=== PATIENT | male | born 1995 | race Caucasian/White ===

== ENCOUNTER 2017-01-02 13:47 | Emergency (ER) | payer SELFPAY ==
[2017-01-02] MEDS ORDERED: guaiFENesin 100 mg/5 ml Syrup UD PO STA (14:44)
--- NOTE | 2017-01-02 14:45 | C.PDOC ---
History Of Present Illness 21 y/o male presents to ED with complaints of non productive cough and nausea since yesterday. Patient states he went to school this morning and symptoms worse, states he took dayquil and nyquil yesterday with mild relief but today did not take anything. Patient denies fever, vomiting, diarrhea, abdominal pain or any other complaints at this time. Time Seen by Provider: 01/02/17 14:25 Chief Complaint (Nursing): Flu-like Symptoms History Per: Patient History/Exam Limitations: no limitations Onset/Duration Of Symptoms: Days Current Symptoms Are (Timing): Still Present Past Medical History Reviewed: Historical Data, Nursing Documentation, Vital Signs Vital Signs: Last Vital Signs Temp 97.3 F L 01/02/17 15:02 Pulse 85 01/02/17 15:02 Resp 18 01/02/17 15:02 BP 126/79 01/02/17 15:02 Pulse Ox 100 01/02/17 15:02 - Medical History PMH: No Chronic Diseases Surgical History: No Surg Hx Family History: States: No Known Family Hx - Social History Hx Alcohol Use: No Hx Substance Use: No - Immunization History Hx Tetanus Toxoid Vaccination: No Hx Influenza Vaccination: No Hx Pneumococcal Vaccination: No Review Of Systems Constitutional: Negative for: Fever, Chills Cardiovascular: Negative for: Chest Pain Respiratory: Positive for: Cough. Negative for: Shortness of Breath Gastrointestinal: Positive for: Nausea. Negative for: Vomiting, Abdominal Pain Musculoskeletal: Negative for: Back Pain Skin: Negative for: Rash Physical Exam - Physical Exam Appears: Non-toxic, No Acute Distress Skin: Normal Color, Warm, Dry, No Rash Head: Atraumatic, Normacephalic Eye(s): bilateral: Normal Inspection, EOMI Ear(s): Bilateral: Normal Nose: Normal Throat: Normal, No Erythema, No Exudate Neck: Normal ROM, Supple Chest: Symmetrical Cardiovascular: Rhythm Regular Respiratory: Normal Breath Sounds, No Rales, No Rhonchi, No Wheezing Gastrointestinal/Abdominal: Soft, No Tenderness, No Guarding, No Rebound Neurological/Psych: Oriented x3 ED Course And Treatment O2 Sat by Pulse Oximetry: 99 (RA) Pulse Ox Interpretation: Normal Medical Decision Making Medical Decision Making: mild viral syndrome, benign exam. educated Disposition Doctor Will See Patient In The: Office Counseled Patient/Family Regarding: Studies Performed, Diagnosis - Disposition Referrals: Gem King [Medical Doctor] - Disposition: HOME/ ROUTINE Disposition Time: 14:44 Condition: GOOD Additional Instructions: continue dayquil//Nyquil regularly for viral syndrome symptoms Rest and take plenty of fluids Follow-up with your PMD as needed. Instructions: Acute Nausea and Vomiting (ED), Viral Syndrome (ED) Forms: [employer] (Hungarian) - Clinical Impression Clinical Impression: Viral syndrome, Vomiting - Scribe Statement The provider has reviewed the documentation as recorded by the Keikoibguy Rooney All medical record entries made by the Keikoibguy were at my direction and personally dictated by me. I have reviewed the chart and agree that the record accurately reflects my personal performance of the history, physical exam, medical decision making, and the department course for this patient. I have also personally directed, reviewed, and agree with the discharge instructions and disposition.
[2017-01-02] MEDS ORDERED: guaiFENesin 100 mg/5 ml Syrup UD ONE (14:52)
[2017-01-02 15:04] VITALS: BP 126/79; PULSE 85; RESP 18; TEMP 97.3
[2017-01-02 15:41] VITALS: O2SAT 99
== END 2017-01-02 14:50 | disposition home or self-care (01) ==
LOC: C.ER 13:47
DX: B34.9 Viral infection, unspecified (principal); R11.10 Vomiting, unspecified

== ENCOUNTER 2018-03-05 14:10 | Emergency (ER) | payer MEDICAID ==
[2018-03-05 14:28] VITALS: BP 119/78; PULSE 101; RESP 18; TEMP 97.4; O2SAT 100
--- NOTE | 2018-03-05 14:48 | C.PDOC ---
History Of Present Illness 22 y/o male presents to the ED complaining of a cough, bodyaches, sore throat, and subjective fever since yesterday. Contrary to triage patient does not report knee pain, instead is complaining of myalgias. Did not receive flu shot this year. No other complaints offered. Time Seen by Provider: 03/05/18 14:30 Chief Complaint (Nursing): Cough, Cold, Congestion History Per: Patient History/Exam Limitations: no limitations Onset/Duration Of Symptoms: Days Current Symptoms Are (Timing): Still Present Past Medical History Reviewed: Historical Data, Nursing Documentation, Vital Signs Vital Signs: Last Vital Signs Temp 97.4 F L 03/05/18 14:26 Pulse 101 H 03/05/18 14:26 Resp 18 03/05/18 14:26 BP 119/78 03/05/18 14:26 Pulse Ox 100 03/05/18 14:26 Surgical History: Hernia Repair Family History: States: Unknown Family Hx - Social History Hx Alcohol Use: No Hx Substance Use: No - Immunization History Hx Tetanus Toxoid Vaccination: No Hx Influenza Vaccination: No Hx Pneumococcal Vaccination: No Review Of Systems Except As Marked, All Systems Reviewed And Found Negative. Constitutional: Positive for: Fever, Chills, Other (Bodyaches) ENT: Positive for: Throat Pain Cardiovascular: Negative for: Chest Pain Respiratory: Positive for: Cough. Negative for: Shortness of Breath Gastrointestinal: Negative for: Nausea, Vomiting, Diarrhea Neurological: Negative for: Headache, Dizziness Physical Exam - Physical Exam Appears: Non-toxic, No Acute Distress Skin: Normal Color, Warm, Dry Head: Atraumatic, Normacephalic Eye(s): bilateral: Normal Inspection, PERRL, EOMI Nose: Normal Oral Mucosa: Moist Throat: Erythema (pharyngeal erythema), No Exudate Neck: Normal ROM Cardiovascular: Rhythm Regular, No Murmur Respiratory: Normal Breath Sounds, No Rales, No Rhonchi, No Wheezing Extremity: Bilateral: Atraumatic, Normal Color And Temperature, Normal ROM Pulses: Left Radial: Normal, Right Radial: Normal Neurological/Psych: Oriented x3 ED Course And Treatment O2 Sat by Pulse Oximetry: 100 (RA) Pulse Ox Interpretation: Normal Medical Decision Making Medical Decision Making: Impression: Flu-like illness Plan: Patient will be discharged home with RX for Tamiflu. Advised to follow up with PMD. high suspecision for influenza will treat Disposition Counseled Patient/Family Regarding: Diagnosis, Need For Followup, Rx Given - Disposition Disposition: HOME/ ROUTINE Disposition Time: 14:45 Condition: STABLE Additional Instructions: return to er with worsening symptoms or concerns. Prescriptions: Oseltamivir Phosphate [Tamiflu] 75 mg PO BID #10 capsule Instructions: Viral Syndrome (DC), Influenza (ED) Forms: [employer] (Kiswahili) - Clinical Impression Clinical Impression: Viral disease - Scribe Statement The provider has reviewed the documentation as recorded by the Diane Fang Provider Attestation: All medical record entries made by the Diane were at my direction and personally dictated by me. I have reviewed the chart and agree that the record accurately reflects my personal performance of the history, physical exam, medical decision making, and the department course for this patient. I have also personally directed, reviewed, and agree with the discharge instructions and disposition.
== END 2018-03-05 15:17 | disposition home or self-care (01) ==
LOC: C.ER 14:10
DX: B34.9 Viral infection, unspecified (principal)

== ENCOUNTER 2018-03-29 18:11 | Emergency (ER) | payer MEDICAID ==
[2018-03-29 18:18] VITALS: BMI 26.6
[2018-03-29] MEDS ORDERED: Sodium Chloride 0.9% 1,000 ML IV ONE (19:35)
[2018-03-29] MEDS ORDERED: Sodium Chloride 0.9% 1,000 ML ONE (20:00)
[2018-03-29 20:16] LABS: BASO # 0.1 K/uL (0.0-0.2); BASO % 0.6 % (0.0-2.0); EOS # 0.6 K/uL (0.0-0.7); LYMPH # 3.1 K/uL (1.0-4.3); LYMPH % 21.4 % (20.0-40.0); MEAN CELL VOLUME 84.7 fL (80.0-94.0); MEAN CORPUSCULAR HEMOGLOBIN 27.5 pg (27.0-31.0); MEAN CORPUSCULAR HGB CONC 32.5 g/dL (33.0-37.0); MEAN PLATELET VOLUME 7.1 fL (7.2-11.7); MONO # 1.2 K/uL (0.0-0.8); MONO % 8.3 % (0.0-10.0); NEUT # 9.6 K/uL (1.8-7.0); NEUT % 65.7 % (50.0-75.0); RBC 5.45 Mil/uL (4.40-5.90); RED CELL DISTRIBUTION WIDTH 14.2 % (11.5-14.5); WHITE BLOOD COUNT 14.5 K/uL (4.8-10.8)
[2018-03-29 20:32] LABS: ALB/GLOB RATIO 1.5 (1.0-2.1); ALBUMIN 4.6 g/dL (3.5-5.0); ALT/SGPT 29 U/L (21-72); AST/SGOT 29 U/L (17-59); BLOOD UREA NITROGEN 14 mg/dL (9-20); CALCIUM 9.2 mg/dl (8.6-10.4); GFR NON-AFRICAN AMERICAN > 60
[2018-03-29 21:03] VITALS: BP 120/77; PULSE 92; RESP 20; O2SAT 95
[2018-03-29 21:28] VITALS: TEMP 98.2
--- NOTE | 2018-03-30 01:08 | C.PDOC ---
History Of Present Illness 22 year old male presents to the ED c/o sharp like chest pain associated with SOB since today at 02:00. Patient denies fever, chills, cough, nausea, vomit, headache, dizziness, recent travel, sick contacts. Chief Complaint (Nursing): Chest Pain History Per: Patient History/Exam Limitations: no limitations Onset/Duration Of Symptoms: Hrs (02:00) Current Symptoms Are (Timing): Still Present Quality: Sharp Associated Symptoms: Other (SOB) Recent travel outside of the [place]: No Additional History Per: Patient Past Medical History Reviewed: Historical Data, Nursing Documentation, Vital Signs Vital Signs: Last Vital Signs Temp 98.2 F 03/29/18 21:28 Pulse 92 H 03/29/18 21:00 Resp 20 03/29/18 21:00 BP 120/77 03/29/18 21:00 Pulse Ox 95 03/29/18 21:00 - Medical History PMH: Hypercholesterolemia Surgical History: Hernia Repair Family History: States: Unknown Family Hx - Social History Hx Alcohol Use: No Hx Substance Use: No - Immunization History Hx Tetanus Toxoid Vaccination: No Hx Influenza Vaccination: No Hx Pneumococcal Vaccination: No Review Of Systems Constitutional: Negative for: Fever, Chills Cardiovascular: Positive for: Chest Pain. Negative for: Palpitations Respiratory: Positive for: Shortness of Breath. Negative for: Cough Gastrointestinal: Negative for: Nausea, Vomiting, Abdominal Pain Skin: Negative for: Rash Neurological: Negative for: Weakness, Numbness, Headache, Dizziness Physical Exam - Physical Exam Appears: Non-toxic, No Acute Distress Skin: Normal Color, Warm, Dry Head: Atraumatic, Normacephalic Eye(s): bilateral: Normal Inspection Neck: Normal ROM, Supple Chest: Symmetrical Cardiovascular: Rhythm Regular Respiratory: Normal Breath Sounds, No Rales, No Rhonchi, No Wheezing Gastrointestinal/Abdominal: Soft, No Tenderness, No Guarding, No Rebound Extremity: Normal ROM, No Tenderness, No Swelling Neurological/Psych: Oriented x3, Normal Speech, Normal Cognition Gait: Steady ED Course And Treatment - Laboratory Results Result Diagrams: 03/29/18 20:10 03/29/18 20:10 Lab Results: D-Dimer, Quantitative < 200 ng/mlDDU (0-243) 03/29/18 20:10 Troponin I < 0.0120 ng/mL (0.00-0.120) 03/29/18 20:10 Total Bilirubin 0.8 mg/dL (0.2-1.3) 03/29/18 20:10 AST 29 U/L (17-59) 03/29/18 20:10 ALT 29 U/L (21-72) 03/29/18 20:10 Alkaline Phosphatase 69 U/L (38-126) 03/29/18 20:10 Total Protein 7.8 g/dL (6.3-8.3) 03/29/18 20:10 Albumin 4.6 g/dL (3.5-5.0) 03/29/18 20:10 Globulin 3.2 gm/dL (2.2-3.9) 03/29/18 20:10 Albumin/Globulin Ratio 1.5 (1.0-2.1) 03/29/18 20:10 ECG: Interpreted By Me, Viewed By Me ECG Rhythm: Sinus Tachycardia Interpretation Of ECG: Normal axis , normal intervals Rate From EC (BPM) O2 Sat by Pulse Oximetry: 95 (ON RA) Pulse Ox Interpretation: Normal Medical Decision Making Medical Decision Making: Plan: * Labs * CXR * EKG * IV fluids reevaluation: Patient's HR was noted to be in the low 90s, patient reports feeling better will follow up with PMD for further evaluation. Disposition - Disposition Referrals: Yamileth Carmona, [Non-Staff] - Disposition: HOME/ ROUTINE Disposition Time: 21:00 Condition: GOOD Additional Instructions: EDENILSON GARCIA, thank you for letting us take care of you today. The emergency medical care you received today was directed at your acute symptoms. If you were prescribed any medication, please fill it and take as directed. It may take several days for your symptoms to resolve. Return to the Emergency Department if your symptoms worsen, do not improve, or if you have any other problems. Please contact your doctor or call one of the physicians/clinics you have been referred to that are listed on the Patient Visit Information form that is included in your discharge packet. Bring any paperwork you were given at discharge with you along with any medications you are taking to your follow up visit. Our treatment cannot replace ongoing medical care by a primary care provider outside of the emergency department. Thank you for allowing the [facility] team to be part of your care today. Follow up with your primary care doctor this week for re-evaluation and further management. Instructions: Dehydration, Adult (DC) Forms: [facility] (Occitan) - Clinical Impression Clinical Impression: Atypical chest pain - Scribe Statement The provider has reviewed the documentation as recorded by the Scribe Filippo Cabello All medical record entries made by the Scribe were at my direction and personally dictated by me. I have reviewed the chart and agree that the record accurately reflects my personal performance of the history, physical exam, medical decision making, and the department course for this patient. I have also personally directed, reviewed, and agree with the discharge instructions and disposition.
--- NOTE | 2018-03-30 09:20 | RAD ---
Chest x-ray single frontal view HISTORY: Chest pain. COMPARISON: None available. Findings: No focal infiltrate or effusion. Heart size within normal limits. Impression: No focal infiltrate or effusion.
--- NOTE | 2018-03-31 09:52 | CARD ---
APPROVED REPORT Date of service: 03/29/2018 EKG Measurement Heart [id number] <Conclusion> Sinus tachycardia Left posterior fascicular block Abnormal ECG
== END 2018-03-29 21:29 | disposition home or self-care (01) ==
LOC: C.ER 18:11
DX: R07.89 Other chest pain (principal)
CPT/HCPCS: 71045; 80053; 84484; 85025; 85378; 93005; 96360; 99284; J7030

== ENCOUNTER 2018-06-18 04:45 | Emergency (ER) | payer MEDICAID ==
[2018-06-18 05:01] VITALS: BMI 60.2
--- NOTE | 2018-06-18 05:03 | C.PDOC ---
History Of Present Illness 22-year-old male presents to the ED for evaluation of pain to his left lower tooth which began yesterday. Patient states he took some medicine for his pain yesterday, with slight improvement. He woke up early this morning with pain, and presents to the ED for further evaluation. Patient denies fever, chills, or injury to the site. Time Seen by Provider: 06/18/18 04:51 Chief Complaint (Nursing): Dental Pain History Per: Patient History/Exam Limitations: no limitations Onset/Duration Of Symptoms: Hrs Current Symptoms Are (Timing): Still Present Quality: Positive for: Aching, "Pain" Additional History Per: Patient Past Medical History Reviewed: Historical Data, Nursing Documentation, Vital Signs - Medical History PMH: Hypercholesterolemia Surgical History: Hernia Repair Family History: States: Unknown Family Hx - Social History Hx Alcohol Use: No Hx Substance Use: No - Immunization History Hx Tetanus Toxoid Vaccination: No Hx Influenza Vaccination: No Hx Pneumococcal Vaccination: No Review Of Systems Constitutional: Negative for: Fever, Chills, Weakness ENT: Positive for: Mouth Pain (tooth ache ) Skin: Negative for: Rash Neurological: Negative for: Weakness, Numbness, Dizziness Physical Exam - Physical Exam Appears: Well, Non-toxic, No Acute Distress Skin: Normal Color, Warm, No Rash Head: Atraumatic, Normacephalic Oral Mucosa: Moist Teeth: Other (cavity noted to left lower molar ) Gingiva: No Swelling Neck: Supple Neurological/Psych: Oriented x3, Normal Cranial Nerves (grossly intact ) Medical Decision Making Medical Decision Making: Motrin PO given. Patient is resting comfortably, showing no signs of distress and reports an improvement in pain. Patient will be discharged with Rx for Motrin and is advised to f/u with dental care within 1-2 days for further evaluation. Disposition Counseled Patient/Family Regarding: Diagnosis, Need For Followup, Rx Given - Disposition Disposition: HOME/ ROUTINE Disposition Time: 05:01 Condition: STABLE Prescriptions: Ibuprofen [Motrin Tab] 800 mg PO TID PRN #21 tab PRN Reason: Pain, Moderate (4-7) Instructions: Dental Pain (DC) Forms: [facility] (Syriac), General Discharge Instructions - Clinical Impression Clinical Impression: Toothache - PA / ELEVATED GUARD / Resident Statement MD/DO has reviewed & agrees with the documentation as recorded. - Scribe Statement The provider has reviewed the documentation as recorded by the Scribe (Melanie Jones) All medical record entries made by the Scribe were at my direction and personally dictated by me. I have reviewed the chart and agree that the record accurately reflects my personal performance of the history, physical exam, medical decision making, and the department course for this patient. I have also personally directed, reviewed, and agree with the discharge instructions and disposition.
[2018-06-18 05:23] VITALS: BP 134/75; PULSE 67; RESP 20; TEMP 97.8; O2SAT 100
== END 2018-06-18 05:25 | disposition home or self-care (01) ==
LOC: C.ER 04:45
DX: K08.89 Other specified disorders of teeth and supporting structures (principal); E78.00 Pure hypercholesterolemia, unspecified

== ENCOUNTER 2018-07-06 23:31 | Emergency (ER) | payer MEDICAID ==
[2018-07-06 23:31] VITALS: BMI 60.2
[2018-07-06 23:59] VITALS: PULSE 84; TEMP 99.1; O2SAT 99
--- NOTE | 2018-07-07 00:31 | C.PDOC ---
History Of Present Illness 23 year old male presents to the ED for evaluation of continuous bleeding s/p tooth extraction. Patient states today he had 2 teeth extracted, however still reports bleeding form the area. Patient was told by Dentist told him bleeding will stop in 4 hours. Patient noticed blood still in the gauze which prompted the visit. Patient denies fever, chills, SOB, tongue swelling, lip swelling. Time Seen by Provider: 07/07/18 00:01 Chief Complaint (Nursing): Dental Pain History Per: Patient History/Exam Limitations: no limitations Onset/Duration Of Symptoms: Hrs Current Symptoms Are (Timing): Still Present Recent travel outside of the [place]: No Additional History Per: Patient Past Medical History Reviewed: Historical Data, Nursing Documentation, Vital Signs Vital Signs: Last Vital Signs Temp 99.1 F 07/06/18 23:54 Pulse 84 07/06/18 23:54 Resp 14 07/06/18 23:54 BP Pulse Ox 99 07/06/18 23:54 Primary Care Provider: Non [facility] Provider, - Medical History PMH: Hypercholesterolemia Surgical History: Hernia Repair Family History: States: Unknown Family Hx - Social History Hx Alcohol Use: No Hx Substance Use: No - Immunization History Hx Tetanus Toxoid Vaccination: No Hx Influenza Vaccination: No Hx Pneumococcal Vaccination: No Review Of Systems Constitutional: Negative for: Fever, Chills, Weakness ENT: Positive for: Mouth Pain. Negative for: Throat Pain, Throat Swelling Respiratory: Negative for: Cough Gastrointestinal: Negative for: Vomiting, Diarrhea Musculoskeletal: Negative for: Neck Pain Skin: Negative for: Rash Neurological: Negative for: Headache Physical Exam - Physical Exam Appears: Well, Non-toxic, No Acute Distress Skin: Normal Color, Warm, Dry Head: Atraumatic, Normacephalic Eye(s): bilateral: Normal Inspection, PERRL, EOMI Ear(s): Bilateral: Normal Nose: Normal Oral Mucosa: Moist Teeth: Other (empty socket in upper and lower left side. No active bleeding at this time) Throat: Normal (no swelling or inejction), No Erythema, No Exudate, Other (airway patent) Neurological/Psych: Oriented x3, Normal Speech ED Course And Treatment O2 Sat by Pulse Oximetry: 99 (ON RA) Pulse Ox Interpretation: Normal Medical Decision Making Medical Decision Making: Patient advised to continue applying pressure to area with gauze and follow up with Dentist if bleeding continues. Disposition Counseled Patient/Family Regarding: Diagnosis, Need For Followup - Disposition Disposition: HOME/ ROUTINE Disposition Time: 00:31 Condition: STABLE Instructions: Bleeding After Surgery Forms: [facility] (Georgian), General Discharge Instructions - Clinical Impression Clinical Impression: Hemorrhage of tooth socket - PA / [employer] / Resident Statement MD/DO has reviewed & agrees with the documentation as recorded. - Scribe Statement The provider has reviewed the documentation as recorded by the Scribe Filippo Cabello All medical record entries made by the Keikoibguy were at my direction and personally dictated by me. I have reviewed the chart and agree that the record accurately reflects my personal performance of the history, physical exam, medical decision making, and the department course for this patient. I have also personally directed, reviewed, and agree with the discharge instructions and disposition.
[2018-07-07 00:38] VITALS: RESP 20
== END 2018-07-07 00:37 | disposition home or self-care (01) ==
LOC: C.ER 23:31
DX: K91.840 Postprocedural hemorrhage of a digestive system organ or structure following a digestive system procedure (principal); E78.00 Pure hypercholesterolemia, unspecified

== ENCOUNTER 2018-07-22 21:19 | Emergency (ER) | payer MEDICAID ==
[2018-07-22 21:20] VITALS: BMI 60.2
[2018-07-22] MEDS ORDERED: Albuterol-Ipratrop 3 mg / 0.5 (3 ml) UD INH STA ×2 (21:57→23:05)
[2018-07-22] MEDS ORDERED: Albuterol-Ipratrop 3 mg / 0.5 (3 ml) UD ONE ×2 (22:06→23:14)
[2018-07-22 22:33] VITALS: BP 114/64; PULSE 112; RESP 20; TEMP 99.3; O2SAT 98
--- NOTE | 2018-07-22 23:45 | C.PDOC ---
History Of Present Illness 23 y/o male c/o fever, bodyaches, cough with yellowish sputum and sore throat that started this afternoon. no sick contacts. no recent travel. pt was fasting for and didn't take any medication for fever. Time Seen by Provider: 07/22/18 21:49 Chief Complaint (Nursing): Flu-like Symptoms History Per: Patient History/Exam Limitations: no limitations Onset/Duration Of Symptoms: Days (1) Current Symptoms Are (Timing): Still Present Location Of Pain: Throat, Diffuse Myalgias Sick Contacts (Context): None Associated Symptoms: Fever, Chills, Sore Throat, Cough, Myalgias Ear Symptoms: Bilateral: None Past Medical History Reviewed: Historical Data, Nursing Documentation, Vital Signs Vital Signs: Last Vital Signs Temp 99.3 F 07/22/18 22:32 Pulse 112 H 07/22/18 22:32 Resp 20 07/22/18 22:32 BP 114/64 07/22/18 22:32 Pulse Ox 98 07/22/18 22:32 Primary Care Provider: Marlys Bragg - Medical History PMH: Hypercholesterolemia Surgical History: Hernia Repair Family History: States: Unknown Family Hx - Social History Hx Tobacco Use: No Hx Alcohol Use: No Hx Substance Use: No - Immunization History Hx Tetanus Toxoid Vaccination: No Hx Influenza Vaccination: No Hx Pneumococcal Vaccination: No Review Of Systems Constitutional: Positive for: Fever, Chills ENT: Positive for: Throat Pain. Negative for: Ear Pain Cardiovascular: Negative for: Chest Pain Respiratory: Positive for: Cough, Wheezing. Negative for: Shortness of Breath Gastrointestinal: Negative for: Nausea, Vomiting, Abdominal Pain Skin: Negative for: Rash Neurological: Negative for: Weakness, Numbness Physical Exam - Physical Exam Appears: Non-toxic, Other (uncomfortable) Skin: Warm, Dry Head: Atraumatic, Normacephalic Eye(s): bilateral: Normal Inspection Ear(s): Bilateral: Normal Nose: No Discharge Oral Mucosa: Moist Throat: Erythema, No Exudate Neck: Supple Lymphatic: No Adenopathy Chest: No Tenderness Cardiovascular: Rhythm Regular, Other (tachycardic) Respiratory: Decreased Breath Sounds, No Rales, No Rhonchi, Wheezing (bilbasilar) Gastrointestinal/Abdominal: Bowel Sounds, Soft, No Tenderness Neurological/Psych: Oriented x3, Normal Speech, Normal Cognition ED Course And Treatment O2 Sat by Pulse Oximetry: 98 Medical Decision Making Medical Decision Making: fever. chills. cough sore throat. wheezing- motrin, rapid strep, cxr. nebs. cxr with possible infiltrate on right side; pt feeling better after tylonol and nebs, d/c with zithromax and albuterol mdi Disposition Counseled Patient/Family Regarding: Studies Performed, Diagnosis, Need For Foll owup, Rx Given - Disposition Referrals: Marlys Bragg MD [Staff Provider] - Disposition: HOME/ ROUTINE Disposition Time: 23:50 Condition: IMPROVED Additional Instructions: Tylenol for pain or fever, Continue antibiotics once a day for next 4 days. For cough and wheezing, , use inhaler 2 puffs every 6 hours. Follow up with Dr Bragg in 1-2 days. Return to ER for any worse symptoms. [facility] Prescriptions: Acetaminophen [Tylenol 325mg tab] 650 mg PO Q4 #50 tab Albuterol HFA [Ventolin HFA 90 mcg/actuation (8 g)] 2 puff IH Q6 #1 inhaler Azithromycin [Zithromax] 250 mg PO DAILY #4 tab Instructions: Community-Acquired Pneumonia, Adult (DC) Forms: [facility] (Japanese), General Discharge Instructions - Clinical Impression Clinical Impression: Pneumonia
--- NOTE | 2018-07-23 09:34 | RAD ---
Chest x-ray two views HISTORY: Cough. Fever. COMPARISON: None available. FINDINGS: Patchy increased markings at the right hilar region as well as projecting over the heart on the anterior views suggestive for possible infiltrate. Clinical correlation. Right hilar prominence. Heart size within normal limits. IMPRESSION: Patchy increased markings at the right hilar region as well as projecting over the heart on the anterior views suggestive for possible infiltrate. Clinical correlation. Right hilar prominence.
== END 2018-07-23 00:07 | disposition home or self-care (01) ==
LOC: C.ER 21:19
DX: J18.9 Pneumonia, unspecified organism (principal)